=== PATIENT | female | born 1975 | race Native Hawaiian/Other Pacific Islander ===

== ENCOUNTER 2020-04-30 17:25 | Emergency (ER) | payer OTHER ==
[~2020-04-30] VITALS: Ht 165.1 cm; Wt 90.7 kg
[2020-04-30 18:40] VITALS: BP 138/77; TEMP 100
== END 2020-04-30 18:40 | disposition home or self-care (01) ==
LOC: ED 17:25
PROC: 2W3LX1Z Immobilization of Right Lower Extremity using Splint (ICD-10-PCS; principal; 2020-04-30)
DX: M25.461 Effusion, right knee (principal); S86.811A Strain of other muscle(s) and tendon(s) at lower leg level, right leg, initial encounter; M23.41 Loose body in knee, right knee; Y93.41 Activity, dancing; Y92.89 Other specified places as the place of occurrence of the external cause
CPT/HCPCS: 99283